=== PATIENT | female | born 1940 | race Caucasian/White ===

== ENCOUNTER 2017-04-22 19:06 | Inpatient (IN) ==
--- NOTE | 2017-04-22 23:12 | Internal Med History&Physical ---
Date of Encounter: 04/22/17 Time of Encounter: 23:12 Assessment and Plan (1) Elevated troponin Current visit: Yes Status: Acute Possibly due to stress response / acute respiratory failure. Unlikely NSTEMI. Monitor on telemetry. Trend troponins. Echocardiogram. Cardiology consultation (2) Acute respiratory failure Current visit: Yes Status: Acute Pt was hypoxic in the rehab unit. Improved with bag/mask in the ER. CXR Reported mild blunting of the left costophrenic angle could be due to small effusion or scarring. Will check D-dimer. Qualifiers: Respiratory failure complication: hypoxia Qualified Code(s): J96.01 - Acute respiratory failure with hypoxia (3) Acute respiratory distress Current visit: Yes Status: Acute Pt was hypoxic in the rehab unit. Improved with bag/mask in the ER. CXR Reported mild blunting of the left costophrenic angle could be due to small effusion or scarring. Will check D-dimer. (4) Leucocytosis Current visit: Yes Status: Acute Cause not known. Possibly due to stress response. CXR is negative for pneumonia. Will check UA and obtain blood cultures. Monitor WBC count. No obvious source of infection at this time and hence not started on antibiotics. Qualifiers: Leukocytosis type: unspecified Qualified Code(s): D72.829 - Elevated white blood cell count, unspecified (5) Hypothyroidism Current visit: Yes Status: Chronic Continue Synthroid Qualifiers: Hypothyroidism type: unspecified Qualified Code(s): E03.9 - Hypothyroidism , unspecified (6) HTN (hypertension) Current visit: Yes Status: Chronic Stable. Continue home medications Qualifiers: Hypertension type: essential hypertension Qualified Code(s): I10 - Essential (primary) hypertension (7) DVT prophylaxis Current visit: Yes Status: Acute subQ heparin Internal Medicine - H&P: HPI Chief complaint: Elevated troponin Admitted From: Intrahospital Transfer Plans for Post Hospital Care: Home History of present illness: Ms. Cornelius is a 77 year old female With h/o hypothyroidism, HTN, Stage IIIA adenocarcinoma s/p right hemicolectomy, s/p PEG tube placement, respiratory failure requiring prolonged ventilation and had tracheostomy done in June 2016, h/o c. diff diarrhea. She has been on tracheostomy / mask. She has been at rehabilitation centre at [facility]. Patient reportedly was found by nursing care staff with sats of 48%, cyanotic, blue, dusky, agonal respirations at the nursing care facility. She was evaluated in the emergency department at [facility] and was thought to have aspirated and was bagged with improvement. Troponin was elevated at 0.11 and hence transferred to the hospitalist service at [facility] for further management. Pts daughter at the bedside (is POA). Pt apparently had cough for about 10 days and reportedly been on antibiotics (No current antibiotics listed in the MAR from the Rehab unit). Patient denies chest pain, fever, chills. No shortness of breath reported at my evaluation. Patient denies abdominal pain, urinary or bowel problems. Labs at [facility]: WBC: 25; Hgb: 9.4; HCT: 30.2; Plt: 434. INR: 1.1. ABG showed PH: 7.37; PCO2: 68; PO2: 248; sats: 100%. Troponin: 0.11; BNP: 152; CXR Reported: Mild blunting of the left costophrenic angle could be due to small effusion or scarring. Past Med Surg Social Fam HX - Past Medical History Medical history: cancer, hyperlipidemia, hypertension, thyroid disease, other ( Hospice full code) Psychiatric history: no psych history - Past Surgical History Surgical History: other (right hemicolectomy) - Social History Smoking Status: Former smoker Smokeless Tobacco Status: No Alcohol use: none Drug use: none - Family History Daughter Adopted: No Living Status: Still Living Hx Family GI Disorders: Yes (diverticulitis) Internal Medicine - H&P: Meds ALPRAZolam [Xanax 0.25 MG Tablet] 0.25 mg GTUBE DAILY 04/22/17 [History] Aspirin [Ecotrin] 325 mg GTUBE 04/22/17 [History] Carvedilol [Coreg] 3.125 mg GTUBE BIDWM 04/22/17 [History] Furosemide [Lasix] 10 mg GTUBE DAILY 04/22/17 [History] Guaifenesin [Liquituss GG] 200 mg GTUBE Q4H 04/22/17 [History] Haloperidol 0.5 mg GTUBE BID 04/22/17 [History] HydrOXYzine Pamoate [Vistaril] 25 mg GTUBE Q4H 04/22/17 [History] Levothyroxine [Synthroid] 88 mcg GTUBE DAILY 04/22/17 [History] Primidone [Mysoline] 12.5 mg GTUBE BID 04/22/17 [History] Ranitidine HCl [Zantac] 150 mg GTUBE BID 04/22/17 [History] Sertraline [Zoloft] 75 mg GTUBE DAILY 04/22/17 [History] Venlafaxine [Effexor] 37.5 mg GTUBE DAILY 04/22/17 [History] Allergies pollen extracts Adverse Reaction (Verified 04/22/17 16:07) Sneezing All Systems PM: A 10-system review of systems was performed and is negative for pertinent findings except as documented above in the HPI. - Constitutional Vitals: Temp Pulse Resp BP Pulse Ox 98.0 F 93 18 138/50 100 04/22/17 21:56 04/22/17 21:56 04/22/17 21:56 04/22/17 21:56 04/22/17 21:56 Exam: General: Not in acute distress at the time of my evaluation HEENT: Oral mucosa is moist. No conjunctival palor or scleral icterus Neck: Tracheostomy / mask in place Lungs: Clear to auscultation Cardiac: Regular rate and rhythm. No significant murmurs Abdomen: Soft, non tender. PEG tube in place with discharge at the PEG tube site. Bowel sounds present Genitourinary: No miranda catheter Neurological: Alert and oriented. No gross localizing deficits Psych: Not aggressive or agitated Extremities: no significant leg edema Skin: No generalized rash Internal Med - H&P Results - Labs CBC & Chem 7: 04/23/17 00:28 04/23/17 00:28 - EKG Data -: EKG Interpreted by Myself EKG shows normal: sinus rhythm Rate: normal - Impressions CXR Reported: Mild blunting of the left costophrenic angle could be due to small effusion or scarring.
[2017-04-22] MEDS ORDERED: Naloxone 0.4 MG/ML INJ IVP PRN (23:25)
[2017-04-22] MEDS ORDERED: Ipratropium/Albuterol Neb 3 ML IH PRN (23:34)
[2017-04-23 01:23] LABS: Basophils # 0.1 K/mcL (0.0-0.2); Basophils % 0.3 %; Eosinophils # 0.1 K/mcL (0.0-0.6); Eosinophils % 0.4 %; Hematocrit 30.1 % (35.3-44.9); Hemoglobin 9.2 g/dL (11.5-15.4); Immature Granulocytes % 1.2 % (0-4); Lymphocytes # 2.3 K/mcL (0.6-4.6); Lymphocytes % 10.4 %; Mean Corpuscular HGB Conc 30.6 g/dL (31.6-35.5); Mean Corpuscular Hemoglobin 28.1 pg (28.0-33.3); Mean Platelet Volume 11.3 fL (9.4-12.4); Monocytes # 2.1 K/mcL (0.0-1.3); Monocytes % 9.5 %; Neutrophils # 17.6 K/mcL (1.6-8.9); Platelet Count 420 K/mcL (140-400); Red Blood Count 3.27 M/mcL (3.82-4.97); Red Cell Distribution Width 15.7 % (11.5-14.5); Segmented Neutrophils % 78.2 %
[2017-04-23] MEDS: *HR* Heparin 5,000 UNIT/ML VIAL SQ SCH ×3 (01:26→15:57)
[2017-04-23 01:40] LABS: BUN/Creatinine Ratio 63 (6-26); Blood Urea Nitrogen 41 mg/dL (7-20); Calcium 9.8 mg/dL (8.6-10.8); Chloride 91 mEq/L (98-109); Chol/HDL Ratio 3.3 (0-4.9); Cholesterol 176 mg/dL (< 200); Glucose 116 mg/dL (70-99); HDL Cholesterol 53 mg/dL (40-59); Osmolality,Calculated 295 (280-300); Potassium 4.9 mEq/L (3.5-4.5); Sodium 137 mEq/L (136-145); eGFR For African Americans > 60 (> 60); eGFR For Non-African Americans > 60 (> 60)
[2017-04-23 01:49] LABS: Carbon Dioxide 41 mEq/L (19-29)
[2017-04-23 02:16] LABS: LDL Cholesterol,Calculated 107 mg/dL (0-99); Triglycerides 78 mg/dL (< 150)
[2017-04-23 05:47] LABS: ABG Base Excess 16.5 mEq/L (-2.0 to 3.0); ABG HCO3 43.8 mEQ/L (21-27); ABG Oxygen Saturation 98 % (95-98); ABG PCO2 66 mmHg (35-45); ABG PH 7.43 pH Units (7.32-7.45); ABG PO2 102 mmHg (85-104); ABG TCO2 45.8 mEq/L (20-26); Blood Gas FiO2 60 %
[2017-04-23] MEDS ORDERED: Furosemide 20 MG/2 ML VIAL IVP ONE (07:35)
[2017-04-23] MEDS: Lactobacillus 1 EACH CAP.SPRINK GTUBE SCH ×2 (08:58→20:33)
[2017-04-23] MEDS: Primidone 50 MG TABLET GTUBE SCH ×2 (08:58→20:33)
[2017-04-23] MEDS ORDERED: ALPRAZolam 0.25 MG TABLET GTUBE SCH (09:00)
[2017-04-23] MEDS: Famotidine 20 MG TABLET GTUBE SCH ×2 (09:00→20:32)
[2017-04-23] MEDS: hydrOXYzine pamoate 25 MG CAPSULE PO SCH ×4 (09:00→20:32)
[2017-04-23] MEDS: GuaiFENesin Liq 200 MG/10 ML UDC GTUBE SCH ×4 (09:02→20:33)
--- NOTE | 2017-04-23 11:49 | Cardiology Consult Note ---
Date of Encounter: 04/23/17 Time of Encounter: 11:30 Assessment and Plan (1) Acute hypoxemic respiratory failure Current Visit: No Status: Acute Per cardiology: -Known tracheostomy. -SpO2 at [facility] noted to be 48%. -Management per primary service. (2) Elevated troponin I level Current Visit: No Status: Acute Per cardiology: -Troponin elevated at 0.11, 0.09, 0.06. -Troponins flat and adynamic in the setting of respiratory failure and leukocytosis. -Patient denies chest pain. -ECG with no ischemic changes. -Echo pending. -DO not suspect NSTEMI, suspect demand ischemia related to hypoxia and leukocytosis. NO cardiac rehab warranted. -Further recommendationg pending echo. (3) Leukocytosis Current Visit: No Status: Acute Per cardiology: -WBC 22. -Was being treated for URI at [facility]. -Management per primary service. Qualifiers: Leukocytosis type: unspecified Qualified Code(s): D72.829 - Elevated white blood cell count, unspecified Discussion w patient/family: The assessment and plan as outlined above was discussed with the patient who expressed understanding and agreement. All questions were answered. Thank you for involving us in the care of your patient. Please call with any questions. Discussed and reviewed with . History of Present Illness Consult date: 04/23/17 Requesting physician: Adry Sharp Consult reason: elevated troponin Chief complaint: shortness of breath History of present illness: Ms. Cornelius is a 77 year old female with a relevant past medical history of HTN, hyperlipidemia, colon CA s/p right hemicolectomy, thyroid disease, tracheostomy , and peg tube. Patient resides at [facility]. At [facility] she was noted to be cyanotic with SpO2 48% and agonal respirations. Patient was taken to [facility] and subsequently admitted to [facility]. Cardiology has been consulted for elevated troponin. Patient has tracheostomy and was not verbal during assessment , however patient able to answer yes and no questions by nodding head. Patient denied chest pain. Patient admits to increased shortness breath, but was being treated by [facility] physician for URI. Past Med Surg Social Fam HX - Past Medical History Attestation: Yes The following information was validated with the patient. Source: patient, old records reviewed Medical history: cancer, hyperlipidemia, hypertension, thyroid disease, other ( Hospice full code) Psychiatric history: no psych history - Past Surgical History Surgical History: other (right hemicolectomy) - Social History Smoking Status: Former smoker Smokeless Tobacco Status: No Alcohol use: none Drug use: none - Family History Daughter Adopted: No Living Status: Still Living Hx Family GI Disorders: Yes (diverticulitis) Medications and Allergies ALPRAZolam [Xanax 0.25 MG Tablet] 0.25 mg GTUBE DAILY 04/22/17 [History] Aspirin [Ecotrin] 325 mg GTUBE DAILY 04/22/17 [History] Carvedilol [Coreg] 3.125 mg GTUBE BIDWM 04/22/17 [History] Furosemide [Lasix] 10 mg GTUBE DAILY 04/22/17 [History] Guaifenesin [Liquituss GG] 200 mg GTUBE Q4H 04/22/17 [History] Haloperidol 0.5 mg GTUBE BID 04/22/17 [History] HydrOXYzine Pamoate [Vistaril] 25 mg GTUBE Q4H 04/22/17 [History] Levothyroxine [Synthroid] 88 mcg GTUBE DAILY 04/22/17 [History] Primidone [Mysoline] 12.5 mg GTUBE BID 04/22/17 [History] Ranitidine HCl [Zantac] 150 mg GTUBE BID 04/22/17 [History] Sertraline [Zoloft] 75 mg GTUBE DAILY 04/22/17 [History] Venlafaxine [Effexor] 37.5 mg GTUBE BID 04/22/17 [History] Allergies pollen extracts Adverse Reaction (Verified 04/22/17 16:07) Sneezing All Systems Review: A 10-system review of systems was performed and is negative for pertinent findings except as documented above in the HPI. - Cardiovascular Cardiovascular: as per HPI, dyspnea at rest, dyspnea on exertion Physical Examination Vital Signs Temperature 98.0 F 04/22/17 21:56 Pulse Rate 93 04/22/17 21:56 Respiratory Rate 18 04/22/17 21:56 Blood Pressure 138/50 04/22/17 21:56 O2 Sat by Pulse Oximetry 100 04/22/17 21:56 Temperature 98.6 F 04/23/17 07:32 Pulse Rate 82 04/23/17 07:32 Respiratory Rate 16 04/23/17 07:32 Blood Pressure 97/86 04/23/17 07:32 O2 Sat by Pulse Oximetry 94 04/23/17 07:32 General: No Apparent Distress, Other (Does not vocalize. Answers questions by nodding head yes and no. ) HEENT: Atraumatic, Normocephaly, Mucus Membranes Moist Neck: No JVD, Normal carotid pulses Cardiac: Reg Rate and Rhythm, Normal S1 and S2, No Murmur Lungs: Other (Lung sounds coarse throughout. ) Neuro: Alert and responsive Abdomen: Soft, Non-Tender Skin: No rashes noted on visualized skin Musculoskeletal: No Chest Wall Tenderness Extremities: No Clubbing, No Cyanosis, No Edema, Normal Pulses Results 04/23/17 00:28 04/23/17 00:28 Lab Results Active Medications Albuterol/Ipratropium (Duoneb) 3 ml IH [id number] PRN; Protocol PRN Reason: Shortness Of Breath/Wheezing Stop: 10/22/17 23:35 Last Admin: 04/23/17 00:56 Dose: 3 ml Alprazolam (Xanax) 0.25 mg GTUBE DAILY AMY PRN Reason: Protocol Stop: 10/23/17 09:01 Last Admin: 04/23/17 09:00 Dose: 0.25 mg Carvedilol (Coreg) 3.125 mg GTUBE BIDWM AMY PRN Reason: Protocol Stop: 10/23/17 08:01 Last Admin: 04/23/17 09:04 Dose: 3.125 mg Famotidine (Pepcid) 20 mg GTUBE BID [facility] Stop: 10/23/17 09:01 Last Admin: 04/23/17 09:00 Dose: 20 mg Furosemide (Lasix) 10 mg PO DAILY AMY Stop: 10/24/17 09:01 Guaifenesin (Robitussin Liq) 200 mg GTUBE Q4H AMY Stop: 10/23/17 07:46 Last Admin: 04/23/17 09:02 Dose: 200 mg Haloperidol (Haldol) 0.5 mg PO BID [facility]Y Stop: 10/23/17 09:01 Last Admin: 04/23/17 09:00 Dose: 0.5 mg Heparin Sodium (Porcine) (Heparin) 5,000 unit SQ Q8HR AMY Stop: 10/23/17 00:01 Last Admin: 04/23/17 09:01 Dose: 5,000 unit Hydroxyzine Pamoate (Hydroxyzine Pamoate) 25 mg PO Q4H [facility] Stop: 10/23/17 07:46 Last Admin: 04/23/17 09:00 Dose: 25 mg Lactobacillus Acidophilus/Rhamnosus (Culturelle) 1 each GTUBE BID [facility] Stop: 10/23/17 09:01 Last Admin: 04/23/17 08:58 Dose: 1 each Levothyroxine Sodium (Synthroid) 88 mcg GTUBE DAILY [facility]Y Stop: 10/23/17 09:01 Last Admin: 04/23/17 09:04 Dose: 88 mcg Naloxone HCl (Narcan) 0.4 mg IVP Q2MIN PRN PRN Reason: Opioid Reversal Stop: 10/22/17 23:26 Primidone (Mysoline) 12.5 mg GTUBE BID [facility] Stop: 10/23/17 09:01 Last Admin: 04/23/17 08:58 Dose: 12.5 mg Sertraline HCl (Zoloft) 75 mg GTUBE DAILY [facility] Stop: 10/23/17 09:01 Venlafaxine HCl (Effexor) 37.5 mg GTUBE DAILY [facility] Stop: 10/23/17 09:01 Last Admin: 04/23/17 08:58 Dose: 37.5 mg Laboratory Tests 04/22/17 04/23/17 04/23/17 16:45 00:28 00:28 WBC 22.5 H Hgb 9.2 L Creatinine Troponin I 0.11 H* 0.09 H* B-Natriuretic Peptide 04/23/17 04/23/17 04/23/17 00:28 00:28 06:20 WBC Hgb Creatinine 0.65 Troponin I 0.06 H* B-Natriuretic Peptide 220 H - Imaging and Cardiology Chest Xray: report reviewed Echo: pending, report reviewed - EKG Interpretation EKG results cardiology: personally reviewed (ECG with SR with PACs, HR 87.), other (Telemetry reviewed with average HR 83, sinus rhythm. PVCs and PACs noted. ) Consult Discharge Plan - Plan Referrals: Fidel Andrew MD [Primary Care Provider] -
--- NOTE | 2017-04-23 12:36 | Internal Med Progress Note ---
Date of Encounter: 04/23/17 Time of Encounter: 09:30 - Assessment and plan (1) Pneumonia Current Visit: Yes Status: Suspected Assessment and plan: Suspect aspiration pneumonia as the patient is currently receiving PEG feeds and she has a white count of 22,000 and she developed acute hypoxia. Patient will be started on Unasyn. Obtain a repeat chest x-ray. Patient is high risk due to acute respiratory failure and risk of worsening respiratory failure. She is also at risk of sepsis and septic shock. Breathing treatments. Qualifiers: Pneumonia type: aspiration pneumonia Aspiration pneumonia type: due to regurgitated food Laterality: bilateral Lung location: lower lobe of lung Qualified Code(s): J69.0 - Pneumonitis due to inhalation of food and vomit (2) Acute respiratory failure Current Visit: Yes Status: Acute Assessment and plan: According to the daughter, patient usually requires 20-40% of FiO2. Currently, patient is on 40% FiO2. We will continue to wean as tolerated. Qualifiers: Respiratory failure complication: hypoxia Qualified Code(s): J96.01 - Acute respiratory failure with hypoxia (3) Elevated troponin Current Visit: Yes Status: Acute Assessment and plan: Cardiologic consult has been requested. Echocardiogram has been ordered. Cardiac enzymes are flat line and adynamic. We will await further cardiac recommendations and will follow up on results of echocardiogram. (4) HTN (hypertension) Current Visit: Yes Status: Chronic Assessment and plan: Controlled blood pressure. Continue current medications. Qualifiers: Hypertension type: essential hypertension Qualified Code(s): I10 - Essential (primary) hypertension (5) Hypothyroidism Current Visit: Yes Status: Chronic Assessment and plan: Stable. Continue home medications. Qualifiers: Hypothyroidism type: unspecified Qualified Code(s): E03.9 - Hypothyroidism , unspecified (6) Diastolic CHF Current Visit: Yes Status: Chronic Assessment and plan: Stable. Continue home dose of Lasix. Follow up on the results of echocardiogram. Qualifiers: Congestive heart failure chronicity: chronic Qualified Code(s): I50.32 - Chronic diastolic (congestive) heart failure - Subjective Interval history: Patient is unable to speak or provide any history or review of systems. She is currently completed by her daughter who is the financial and medical power of deputy commonwealth's attorney. Information was obtained from the daughter. According to the daughter, patient had colon surgery for colon cancer last year and was subsequently discharged. However, the patient had to be admitted for pneumonia late last year. She had to be intubated and was in the ICU. She was eventually transferred to [facility] due to difficulty extubating and had to undergo a tracheostomy. The patient was cared for at [facility] and eventually discharged with tracheostomy on the ventilator to a [facility] where she was eventually weaned off the ventilator. However, when she was at the [facility], she developed Clostridium difficile infection. As the patient had already undergone colon surgery, she was felt to have very poor prognosis and was made hospice at the time. However, the patient recovered from this illness. However , she continued to be in hospice. The patient has been sent to the emergency room from her current rehabilitation facility at [place] due to hypoxia with oxygen saturation dropping into the 40s. The patient was brought to the emergency department. She also developed tachycardia along with hypoxia. However, according to the daughter, these had resolved within about an hour off starting. The daughter clarified that the patient's wishes regarding advanced directives were for DNR comfort care arrest. The patient would also like to be placed on ventilator if necessary but would not like to stay on the ventilator for longer dental to 3 days. - Constitutional Vitals: Temp Pulse Resp BP Pulse Ox 98.2 F 76 14 108/75 96 04/23/17 11:58 04/23/17 11:58 04/23/17 11:58 04/23/17 11:58 04/23/17 11:58 Exam: Gen.: Lying in bed. Mild distress. Trach collar present and the patient is currently on 40% FiO2. Chest: Clear to auscultation bilaterally. No adventitious sounds present. CVS: First and second heart sounds present. No murmurs, rubs or gallops. No tachycardia appreciated. Abdomen: Soft, nontender, nondistended. Bowel sounds present. No hepatosplenomegaly. Internal Medicine: Result - Labs CBC & Chem 7: 04/23/17 00:28 04/23/17 00:28 Labs: Short CBC 04/23/17 Range/Units 00:28 WBC 22.5 H (4.3-11.1) K/mcL Hgb 9.2 L (11.5-15.4) g/dL Hct 30.1 L (35.3-44.9) % Plt Count 420 H (140-400) K/mcL Neutrophils # 17.6 H (1.6-8.9) K/mcL BMP 04/23/17 00:28 Sodium 137 Potassium 4.9 H Chloride 91 L Carbon Dioxide 41 H* BUN 41 H Creatinine 0.65 Glucose 116 H Calcium 9.8 Cardiac Enzymes 04/23/17 04/23/17 Range/Units 00:28 06:20 Troponin I 0.09 H* 0.06 H* (0-0.03) ng/mL - ABG Interpretation ABG results: ABG ABG pH 7.43 pH Units (7.32-7.45) 04/23/17 05:17 ABG pCO2 66 mmHg (35-45) H 04/23/17 05:17 ABG pO2 102 mmHg (85-104) 04/23/17 05:17 ABG O2 Saturation 98 % (95-98) 04/23/17 05:17 PT/INR, D-dimer D-Dimer 1274 ng/mLFEU (0-500) H 04/23/17 04:14 Consult Discharge Plan - Plan Referrals: Fidel Andrew MD [Primary Care Provider] -
--- NOTE | 2017-04-23 15:41 | Event Note ---
Date of Encounter: 04/23/17 Time of Encounter: 15:40 - Cardiology Event Note Echocardiogram with LVEF 60%, all zambrano with normal motion. Cardiology will sign off and will follow in oupatient setting. Follow up set.
[2017-04-23] MEDS: Ipratropium/Albuterol Neb 3 ML IH SCH ×2 (15:43→21:59)
[2017-04-23] MEDS ORDERED: ALPRAZolam 0.25 MG TABLET PO PRN (18:11)
[2017-04-23] MEDS: Ampicillin/Sulbactam 1,500 MG in 0.9 % Sodium Chloride Mini Bag 100 ML IVPB SCH (20:45)
[2017-04-24] MEDS: Ampicillin/Sulbactam 1,500 MG in 0.9 % Sodium Chloride Mini Bag 100 ML IVPB SCH (00:16)
[2017-04-24] MEDS: GuaiFENesin Liq 200 MG/10 ML UDC GTUBE SCH (00:17)
[2017-04-24] MEDS: hydrOXYzine pamoate 25 MG CAPSULE PO SCH (00:17)
[2017-04-24 00:34] VITALS: BP 107/99
[2017-04-24] MEDS: *HR* Heparin 5,000 UNIT/ML VIAL SQ SCH (00:57)
[2017-04-24] MEDS ORDERED: *HR* Atropine Sulfate 1 MG/10 ML SYRINGE IV ONE (03:14)
[2017-04-24] MEDS ORDERED: *HR* EPINEPHrine 1 MG/10 ML SYRINGE IVP ONE (03:14)
--- NOTE | 2017-04-24 03:40 | Event Note ---
Date of Encounter: 04/24/17 Time of Encounter: 03:35 I responded to call for help from RN on this patient around 2:45 am. Pt was noted to be apneic, pulseless, and had a bradycardic rhythm in the teens. We called CODE BLUE and started resuscitation per ACLS protocol. There remained a discrepancy on patient's code status. Since code status could not be confirmed , we continued per ACLS protocol. Dr. Paulino was able to reach family during the code and they expressed their wish to discontinue resuscitative measures at that point. Despite several rounds of CPR, epinephrine, ventilations, and ACLS measures, patient remained puleselss, apneic, and in PEA. We called the code at 3:02 am as per family's wishes and after an unsuccessful resuscitation attempt. Time of was 3:02 am.
--- NOTE | 2017-04-24 08:31 | Discharge Summary ---
Date of Encounter: 04/24/17 Time of Encounter: 09:30 - Discharge Diagnosis (1) Pneumonia Priority: Primary Status: Acute Qualifiers: Pneumonia type: aspiration pneumonia Aspiration pneumonia type: due to regurgitated food Laterality: bilateral Lung location: lower lobe of lung Qualified Code(s): J69.0 - Pneumonitis due to inhalation of food and vomit (2) Acute respiratory failure Priority: Secondary Status: Acute Qualifiers: Respiratory failure complication: hypoxia Qualified Code(s): J96.01 - Acute respiratory failure with hypoxia (3) Elevated troponin Priority: Secondary Status: Acute (4) HTN (hypertension) Priority: Secondary Status: Chronic Qualifiers: Hypertension type: essential hypertension Qualified Code(s): I10 - Essential (primary) hypertension (5) Hypothyroidism Priority: Secondary Status: Chronic Qualifiers: Hypothyroidism type: unspecified Qualified Code(s): E03.9 - Hypothyroidism , unspecified (6) Diastolic CHF Priority: Secondary Status: Chronic Qualifiers: Congestive heart failure chronicity: chronic Qualified Code(s): I50.32 - Chronic diastolic (congestive) heart failure - Discharge Medications Home Medications: ALPRAZolam [Xanax 0.25 MG Tablet] 0.25 mg GTUBE DAILY 04/22/17 [History] Aspirin [Ecotrin] 325 mg GTUBE DAILY 04/22/17 [History] Carvedilol [Coreg] 3.125 mg GTUBE BIDWM 04/22/17 [History] Furosemide [Lasix] 10 mg GTUBE DAILY 04/22/17 [History] Guaifenesin [Liquituss GG] 200 mg GTUBE Q4H 04/22/17 [History] Haloperidol 0.5 mg GTUBE BID 04/22/17 [History] HydrOXYzine Pamoate [Vistaril] 25 mg GTUBE Q4H 04/22/17 [History] Levothyroxine [Synthroid] 88 mcg GTUBE DAILY 04/22/17 [History] Primidone [Mysoline] 12.5 mg GTUBE BID 04/22/17 [History] Ranitidine HCl [Zantac] 150 mg GTUBE BID 04/22/17 [History] Sertraline [Zoloft] 75 mg GTUBE DAILY 04/22/17 [History] Venlafaxine [Effexor] 37.5 mg GTUBE BID 04/22/17 [History] Allergies/Adverse Reactions: Allergies pollen extracts Adverse Reaction (Verified 04/22/17 16:07) Sneezing Procedures/tests Complete & Pending: Procedures Performed prior 72 hours Category Date Time Status CT chest w/o contrast [CT chest wo con] [CT] Routine Cat Scan 04/23/17 15:30 Completed EV echocardiogram Routine Y 04/23/17 03:48 Completed Date of admission: 04/22/17 23:30 Primary care physician: Fidel Andrew MD Consults: 04/22/17 23:35 Consult to Nutrition [CONS] Routine Comment: Consulting Provider: NUTRITION Reason for Dietary Consult: TF Start and Manage 04/23/17 03:48 Consult to Cardiology [CONS] Routine Comment: Consulting Provider: Cardiology Abby Reason for Consult: Elevated troponin Call Completed: No 04/23/17 07:12 Consult to Police [employer] [CONS] Routine Reason for SW Consult: rtn [facility] Discharging clinician: George Mata Anticipated date of discharge: 04/24/17 - Patient Status Disposition: Condition: Undetermined Overall status at discharge: other - Discharge Instructions Follow Up With: Fidel Andrew MD [Primary Care Provider] - - Diet and Activity Activity: other Diet: other Hospital course: Ms. Cornelius is a 77 year old female who was on chronic trach collar was sent to the emergency department and was discharged from her hospice when she became acutely hypoxic with saturations in the 40s. She also had tachycardia at the time. However, after suctioning, the symptoms seem to have improved in about 1 hour. However, the patient was still sent to the emergency department. The patient was admitted to the hospital due to acute worsening of her respiratory failure with hypoxia and suspicion of pneumonia. A chest x-ray during hospital stay revealed possible obstruction on the right side and a CT scan of the chest versus bronchoscopy were recommended. CT scan of the chest was obtained. It revealed a small right pleural effusion and consolidation in the right middle and lower lobes concerning for atelectasis and superimposed pneumonia. He should not had already been started on Unasyn yesterday. Bronchoscopy was recommended by the radiologist who read the CT scan. However, overnight, the patient seemed to have lost her pulses and developed PEA on the monitor. Patient was given cardio pulmonary resuscitation for about 15 minutes with no return of spontaneous circulation. The family was contacted and the overnight team was directed to discontinue the resuscitation efforts. Hence, at 3:02 AM, she was declared and the code was discontinued. Cause of is cardiopulmonary arrest related to acute on chronic hypoxic respiratory failure and pneumonia. - Time Spent with Patient Total time spent providing and/or coordinating discharge services: Greater than 30 minutes (35) - Constitutional Vitals: Temp Pulse Resp BP Pulse Ox 98.6 F 20 20 107/99 93 04/24/17 00:00 04/24/17 02:59 04/24/17 00:00 04/24/17 00:00 04/24/17 00:00
[2017-04-24] MEDS ORDERED: Furosemide 20 MG TABLET PO SCH (09:00)
== END 2017-04-24 03:15 | disposition expired | DRG 177 ==
LOC: 2NENU
PROVIDERS: ADMIT Nurse Practitioner Acute Care; ATTEND Internal Medicine Sleep Medicine